=== PATIENT | female | born 1985 | race Caucasian/White ===

== ENCOUNTER 2022-12-02 15:25 | Outpatient (AMB) | payer OTHER, SELFPAY ==
[2022-12-02 15:34] VITALS: BP 106/72; PULSE 62; O2SAT 96; BMI 47.3
--- NOTE | 2022-12-02 15:34 | MHC.PC.OV ---
Vital Signs 12/02/22 15:34 Height 5 ft 2.5 in Weight 263 lb BMI 47.3 BP 106/72 Blood Pressure Location Lt brachial Position Sitting Pulse 62 Pulse Source Pulse Oximeter Temp Source Skin Pulse Oximetry (%) 96 Oxygen Delivery Method Room Air Intake Visit Reasons: Annual PE Intake Note: Patient is here today for a physical. Allergies acetaminophen [Vicodin] Allergy (Unknown, Verified 12/02/22 16:15) rash hydrocodone [Vicodin] Allergy (Unknown, Verified 12/02/22 16:15) rash diphenhydramine [From Benadryl] Adverse Reaction (Severe, Verified 12/02/22 16:15) sleepiness Medication List - Last Reconciled 12/02/22 by BRYAN Mathis albuterol sulfate 90 mcg/actuation (ProAir HFA) 2 puffs inhalation Q6H PRN 30 days aripiprazole (Abilify) 10 mg PO BEDTIME 90 days cholecalciferol (vitamin D3) 25 mcg PO DAILY 90 days clonazepam 0.5 mg PO BID PRN 30 days zolpidem 10 mg PO BEDTIME PRN 30 days Tobacco use date assessed: 12/02/22 Dental Screening Dental Screen Date: 12/02/22 Did you have a dental visit in the last 12 months?: Yes Did you have a dental problem in the last 6 months where you did not have access to dental care?: No Was dental information given to patient?: Patient has dentist HPI Annual PE HPI Details Patient is a 37-year-old female who presents today for physical exam. Patient of Dr. Sheets. Medical history significant for anxiety, depression, insomnia, asthma, patient reports smoking 10 cigarettes per day - interested in nicotine patch. Today we discussed patient's need for cervical cancer screening, patient has declined, she was educated on importance of Pap smears, she reports she never had a Pap smear in the past, she will think about this. Up-to-date with immunizations. Interested in counseling referral for her mental health. Reports eye exam 1 year ago. Reports dental exam in the past year. Denies shortness of breath or chest pain. [facility] Medical History (Updated 12/02/22 @ 16:31 by BRYAN Mathis) Anxiety Depression with anxiety Encounter to establish care History of drug abuse Insomnia Insomnia due to medical condition Surgical History History of incision and drainage Family History Father Diabetes Liver cancer HIV (human immunodeficiency virus infection) Mother No problems noted. Maternal Grandmother Diabetes Hypertension Cancer Maternal Uncle Cancer Family/Other FH: mental illness Social History Housing: Apartment Alcohol intake: never Patient Tobacco Use Status: Current everyday Tobacco user Tobacco use type: Cigarette Cigarettes Per Day: 6 e-Cigarette/Vaping Use: Never Used Second Hand Smoke Exposure: Yes service: No Current occupational status: disabled Cognitive needs: No Hearing needs: No Vision needs: Yes (glasses) Questionnaire PHQ-9 Over the last 2 weeks, how often have you been bothered by any of the following problems? 1. Little interest or pleasure in doing things: not at all 2. Feeling down, depressed, or hopeless: not at all 3. Trouble falling or staying asleep, or sleeping too much: not at all 4. Feeling tired or having little energy: not at all 5. Poor appetite or overeating: not at all 6. Feeling bad about yourself - or that you are a failure or have let yourself or your family down: not at all 7. Trouble concentrating on things, such as reading the newspaper or watching television: not at all 8. Moving or speaking so slowly that other people could have noticed. Or the opposite - being so fidgety or restless that you have been moving around a lot more than usual: not at all 9. Thoughts that you would be better off or of hurting yourself in some way: not at all Total score: 0 Depression Screening Interpretation: Negative 94809 - PHQ-9 Billing: Yes Source: Developed by Drs. Talha Meneses, Vanessa Cochran, Cesar Randall and colleagues, with an educational guillermo from [employer]. Thrive Questionnaire Date Thrive assessed: 12/02/22 I am a: Patient What is your living situation today?: I have a steady place to live Within the past 12 months, did the food you bought not last and you didn't have the money to get more?: Never true Within the past 12 months, did you worry whether your food would run out before you got money to buy more?: Never true Currently or been in a relationship where the following occur: no concerns reported AUDIT C Alcohol Use Questionnaire (AUDIT-C) 1. How often do you have a drink containing alcohol?: Never Total Score: 0 Score Reviewed/Action Taken: No KARIN-7 AMB Questionnaire KARIN-7 Date KARIN - 7 assessed: 12/02/22 Feeling nervous, anxious, or on edge: 3 = Nearly every day Not being able to stop or control worryin = Nearly every day Worrying too much about different things: 3 = Nearly every day Trouble relaxin = Not at all Being so restless that it is hard to sit still: 0 = Not at all Becoming easily annoyed or irritable: 0 = Not at all Feeling afraid as if something awful might happen: 0 = Not at all Total KARIN-7 score (0-4 normal; 5-9 mild; 10-14 moderate; 15-21 severe): 9 Source: Developed by Drs. Talha Meneses, Vanessa Cochran, Cesar Randall and colleagues, with an educational guillermo from [employer]. KARIN-7 Assessment Billing KARIN-7 Assessment Tool: KARIN-7 Assessment 47094 Review of Systems Const Denies body aches, Denies chills, Denies fever(s) and Denies headache(s) Eyes Denies change in vision ENT Denies dizziness, Denies otalgia, Denies headache(s), Denies nasal discharge, Denies sinus pain and Denies sore throat Card Denies chest pain, Denies edema, Denies lightheadedness and Denies dyspnea Resp Denies cough, Denies dyspnea and Denies wheezing GI Denies abdominal pain, Denies constipation, Denies diarrhea, Denies nausea and Denies vomiting Denies dysuria Musc Denies myalgias Skin/Breast Denies rash Neuro Denies dizziness and Denies headache(s) Aller/Immun Denies wheezing Physical exam (Primary Care) Vital Signs: Last Vital Signs Pulse 62 12/02/22 15:34 BP 106/72 12/02/22 15:34 Pulse Ox 96 12/02/22 15:34 Oxygen Delivery Method Room Air 12/02/22 15:34 BMI result Body Mass Index 47.3 Tobacco/Smoking Status: Tobacco use Status Tobacco use date assessed 12/02/22 12/02/22 15:44 Patient Tobacco Use Status Current everyday Tobacco 12/02/22 16:03 Tobacco use type Cigarette 12/02/22 15:38 e-Cigarette/Vaping Use Never Used 12/02/22 15:38 PHQ-9: PHQ-9 Score PHQ-9: Total score 0 12/02/22 16:03 Depression Screening Interpretation: Negative Thrive Assessment: Date of Thrive Assessment Date Thrive assessed 12/02/22 12/02/22 15:44 Currently or been in a relationship where the following occur: no concerns reported Const General: cooperative and no acute distress Orientation/consciousness: patient oriented x3 HENMT Head: Yes normocephalic and Yes atraumatic Ears: TM's normal bilaterally General nose exam: Normal nasal mucous membranes and turbinates present and No nasal discharge present Face and sinus: Yes sinuses nontender Mouth: oropharynx normal and moist mucous membranes Throat: Yes posterior oropharynx normal Eyes General: appearance normal, both eyes and all related structures Pupils: Equal, round and reactive pupils present EOM: EOMs intact bilaterally Neck Neck: Yes normal visual inspection, Yes full ROM and Yes no lymphadenopathy Thyroid: Thyroid normal Resp Effort & Inspection: normal respiratory effort and able to speak in complete sentences Auscultation: clear to auscultation bilaterally, no crackles, no rales, no rhonchi and no wheezes Cardio Rate: regular rate Rhythm: regular rhythm Heart sounds: S1 normal heart sound present, S2 normal heart sound present and no murmurs GI Palpation (GI): Soft to palpation, not firm, nontender, no guarding, not rigid and no hepatosplenomegaly Auscultation: normal bowel sounds General: No CVA tenderness Back/Spine/Pelvis Back: No CVA tenderness Skin General skin exam: no rashes or lesions noted Neuro General: patient oriented x3 Cranial nerves: Yes Equal, round and reactive pupils present Gait exam (Neuro): Normal gait present Extrem General: Yes full ROM and No edema Assessment and Plan Assessment & Plan (1) Morbid obesity with BMI of 45.0-49.9, adult: Code(s): E66.01 - Morbid (severe) obesity due to excess calories; Z68.42 - Body mass index [BMI] 45.0-49.9, adult Plan: Encouraged healthy food choices and exercise as tolerated Patient reports she will think about weight management referral (2) Cigarette nicotine dependence: Code(s): F17.210 - Nicotine dependence, cigarettes, uncomplicated Plan: Smokes 10 cigarettes per day - encouraged smoking cessation Nicotine patch sent (3) Physical exam: Comment: UTD dental and eye exam COVID IZs X 3 Declines pap Code(s): Z00.00 - Encounter for general adult medical examination without abnormal findings Plan: Repeat in 1 year (4) Papanicolaou smear declined: Code(s): Z53.20 - Procedure and treatment not carried out because of patient's decision for unspecified reasons Plan: See HPI for details (5) Insomnia: Code(s): G47.00 - Insomnia, unspecified Qualifiers: Insomnia type: due to other mental disorder Qualified Code(s): F51.05 - Insomnia due to other mental disorder; F99 - Mental disorder, not otherwise specified Plan: Reinforced sleep hygiene Continue zolpidem 10 mg at bedtime p.r.n.-educated about sedation and dependency (6) Depression with anxiety: Code(s): F41.8 - Other specified anxiety disorders Plan: Counseling referral Continue Klonopin b.i.d. p.r.n.-educated about dependency and memory loss Continue Abilify Plan Follow-up with PCP in 6 months or sooner as needed Orders: Orders Vitamin D 25-OH Total Today Z00.00 - Encounter for general adult medical examination without abnormal findings Vitamin B12 and Folate Today Z00.00 - Encounter for general adult medical examination without abnormal findings TSH reflex Free T4 Today Z00.00 - Encounter for general adult medical examination without abnormal findings Lipid Panel Today Z00.00 - Encounter for general adult medical examination without abnormal findings Comprehensive [place]. Panel Fast Today Z00.00 - Encounter for general adult medical examination without abnormal findings Complete Blood Count Auto Diff Today Z00.00 - Encounter for general adult medical examination without abnormal findings Referrals Counseling Referral F41.8 - Other specified anxiety disorders Medications: New nicotine 1 patch transdermal Q24H 14 ea 1RF F17.210 - Nicotine dependence, cigarettes, uncomplicated Coding Level of Care Code Est Pt Prev Care [id number](68756) Diagnoses Morbid obesity with BMI of 45.0-49.9, adult E66.01; Z68.42 Cigarette nicotine dependence F17.210 Physical exam Z00.00 Papanicolaou smear declined Z53.20 Insomnia F51.05; F99 Insomnia type: due to other mental disorder Depression with anxiety F41.8 Additional Codes KARIN-7 Assessment Billing - KARIN-7 Assessment Tool: KARIN-7 Assessment [id number] ([id number])
== END 2022-12-02 16:30 | disposition home or self-care (01) ==
PROVIDERS: PCP Internal Medicine; Visit Provider Nurse Practitioner Family
DX: Z00.00 Encounter for general adult medical examination without abnormal findings (principal); E66.01 Morbid (severe) obesity due to excess calories; Z68.42 Body mass index [BMI] 45.0-49.9, adult; F17.210 Nicotine dependence, cigarettes, uncomplicated; F41.8 Other specified anxiety disorders; Z53.20 Procedure and treatment not carried out because of patient's decision for unspecified reasons; F51.05 Insomnia due to other mental disorder; F99 Mental disorder, not otherwise specified
CPT/HCPCS: 99395

== ENCOUNTER 2024-12-28 11:04 | Outpatient (AMB) | payer OTHER, SELFPAY ==
[2024-12-28 11:08] VITALS: BP 140/72; PULSE 73; RESP 18; TEMP 36.1; O2SAT 96; BMI 43.6
--- NOTE | 2024-12-28 11:08 | A.OFFPC_ITS ---
Vital Signs 12/28/24 11:08 Height 5 ft 2.5 in Weight 242 lb 8 oz BMI 43.6 BP 140/72 H Blood Pressure Location Lt brachial Position Sitting Respiration 18 Pulse 73 Pulse Source Pulse Oximeter Temp 96.9 F Temp Source Temporal Artery Scan Pulse Oximetry (%) 96 Oxygen Delivery Method Room Air Intake Visit Reasons: annual physical Registered Nurse Hh Case Manager Required: No Accompanied by: Self / Same As Patient Allergies acetaminophen (Vicodin) Allergy (Unknown, Verified 12/28/24 11:25) rash hydrocodone (Vicodin) Allergy (Unknown, Verified 12/28/24 11:25) rash diphenhydramine (From Benadryl) Adverse Reaction (Severe, Verified 12/28/24 11:25) sleepiness Medication List - Last Reconciled 12/28/24 by Tere Mckinnon MD albuterol sulfate 90 mcg/actuation (ProAir HFA) 2 puffs inhalation Q6H PRN 30 days aripiprazole (Abilify) 10 mg PO BEDTIME 90 days cholecalciferol (vitamin D3) 25 mcg PO DAILY 90 days clonazepam 0.5 mg PO BID PRN 30 days nicotine 1 patch transdermal Q24H zolpidem 10 mg PO BEDTIME PRN 30 days Tobacco use date assessed: 12/28/24 Dental Screening Dental Screen Date: 12/28/24 Did you have a dental visit in the last 12 months?: No Did you have a dental problem in the last 6 months where you did not have access to dental care?: No Was dental information given to patient?: No HPI HPI Comments History of Present Illness Details The patient is a 39-year-old female presenting for a physical examination. She will call to schedule a mammogram whenever she is ready. Declines Pap smear. She has a history of morbid obesity and has been advised to engage in diet and exercise to achieve a BMI goal of less than 30, although she is not currently interested in weight management interventions. The patient is a smoker and has been advised to quit smoking. She has a history of intranasal opiate use, with her last use reported approximately six months ago. The patient experiences moderate recurrent major depression, with a PHQ-9 score of 15, and is currently not engaged in counseling or therapy. She was previously on sulfiram for insomnia and clonazepam for anxiety, and is aware of the potential for addiction and sedation associated with these medications. Clonazepam is also noted to have potential risks for causing dementia. [facility] Medical History (Updated 12/28/24 @ 12:29 by Tere Mckinnon MD) Morbid obesity with BMI of 45.0-49.9, adult Encounter to establish care Insomnia Depression with anxiety History of drug abuse Insomnia due to medical condition Anxiety Surgical History History of incision and drainage Family History Father Diabetes Liver cancer HIV (human immunodeficiency virus infection) Mother No problems noted. Maternal Grandmother Diabetes Hypertension Cancer Maternal Uncle Cancer Family/Other FH: mental illness Social History Housing: Apartment Alcohol intake: never Patient Tobacco Use Status: Current everyday Tobacco user Tobacco use type: Cigarette Cigarettes Per Day: 6 e-Cigarette/Vaping Use: Never Used Second Hand Smoke Exposure: Yes service: No Current occupational status: disabled Cognitive needs: No Hearing needs: No Vision needs: Yes (glasses) Questionnaire PHQ-9 Over the last 2 weeks, how often have you been bothered by any of the following problems? 1. Little interest or pleasure in doing things: more than half the days 2. Feeling down, depressed, or hopeless: several days 3. Trouble falling or staying asleep, or sleeping too much: nearly every day 4. Feeling tired or having little energy: nearly every day 5. Poor appetite or overeating: more than half the days 6. Feeling bad about yourself - or that you are a failure or have let yourself or your family down: several days 7. Trouble concentrating on things, such as reading the newspaper or watching television: more than half the days 8. Moving or speaking so slowly that other people could have noticed. Or the opposite - being so fidgety or restless that you have been moving around a lot more than usual: several days 9. Thoughts that you would be better off or of hurting yourself in some way: not at all Total score: 15 Depression Screening Interpretation: Positive (no suicidal thoughts) Depression Screening Follow-up: Existing condition, New Medication prescribed and Follow-up Visit Requested Depression Screening Done: Yes 82123 - PHQ-9 Billing: Yes Source: Developed by Drs. Talha Meneses, Vanessa Cochran, Cesar Randall and colleagues, with an educational guillermo from [employer]. Thrive Questionnaire Date Thrive assessed: 12/02/22 I am a: Patient What is your living situation today?: I do not have a steady places to live I am temporarily staying with others Within the past 12 months, did the food you bought not last and you didn't have the money to get more?: Sometimes True Within the past 12 months, did you worry whether your food would run out before you got money to buy more?: Sometimes True Do you have trouble paying for medicines?: No Do you have trouble getting transportation to medical appointments?: No Do you have trouble paying your heating and electricity bill?: I choose not to answer this question Do you have trouble taking care of your child, family member or friend?: No Do you have trouble with day-to-day activities such as bathing, preparing meals, shopping, managing finances, etc.?: No Are you currently unemployed and looking for a job?: I choose not to answer this question Are you interested in more education?: No Please select the resources that you would like help with: None Currently or been in a relationship where the following occur: No concerns reported THRIVE Score: 3 AUDIT C Alcohol Use Questionnaire (AUDIT-C) 1. How often do you have a drink containing alcohol?: Never Total Score: 0 Score Reviewed/Action Taken: No KARIN-7 AMB Questionnaire KARIN-7 Date KARIN - 7 assessed: 12/02/22 Feeling nervous, anxious, or on edge: 1 = Several days Not being able to stop or control worryin = Several days Worrying too much about different things: 1 = Several days Trouble relaxin = Several days Being so restless that it is hard to sit still: 1 = Several days Becoming easily annoyed or irritable: 2 = More than half the days Feeling afraid as if something awful might happen: 0 = Not at all Total KARIN-7 score (0-4 normal; 5-9 mild; 10-14 moderate; 15-21 severe): 7 Source: Developed by Vanessa Gonsalves Kurt Kroenke and colleagues, with an educational guillermo from [employer]. KARIN-7 Assessment Billing KARIN-7 Assessment Tool: KARIN-7 Assessment 39707 Review of Systems Const All systems reviewed & are unremarkable except as noted in HPI and below Card Denies chest pain at rest, Denies chest pain with activity, Denies edema, Denies irregular heart rhythm, Denies claudication, Denies dyspnea, Denies dyspnea on exertion, Denies orthopnea, Denies paroxysmal nocturnal dyspnea and Denies slow heart rate Resp Denies cough, Denies dyspnea and Denies dyspnea on exertion Physical exam (Primary Care) Vital Signs: Last Vital Signs Temp 96.9 F 12/28/24 11:08 Pulse 73 12/28/24 11:08 Resp 18 12/28/24 11:08 BP 140/72 H 12/28/24 11:08 Pulse Ox 96 12/28/24 11:08 Oxygen Delivery Method Room Air 12/28/24 11:08 BMI result Body Mass Index 43.6 BMI Assessment/Plan discussion: High BMI High, discussed plan: lifestyle, weight reduction, dietary and physical activity Tobacco/Smoking Status: Tobacco use Status Tobacco use date assessed 12/28/24 12/28/24 11:17 Patient Tobacco Use Status Current everyday Tobacco 12/28/24 11:17 Tobacco use type Cigarette 12/28/24 11:17 e-Cigarette/Vaping Use Never Used 12/28/24 11:17 Are you ready to quit: No Tobacco cessation counseling provided: Yes Items discussed: Nicotine replacement and QuitWorks Relapse Prevention: discussed the importance of a supportive environment, discussed extending NRT, discussed negative mood or depression after quitting, weight gain after smoking is common and discussed dietary, exercise and/or lifestyle changes Number of minutes spent counselin CPT code: Less than 3 minutes PHQ-9: PHQ-9 Score PHQ-9: Total score 15 12/28/24 11:42 Depression Screening Interpretation: Positive (no suicidal thoughts) Depression Screening Follow-up: Existing condition, New Medication prescribed and Follow-up Visit Requested Thrive Assessment: Date of Thrive Assessment Date Thrive assessed 12/02/22 12/28/24 11:17 Currently or been in a relationship where the following occur: No concerns reported HENMT Head: Yes normal to inspection, Yes normocephalic and Yes atraumatic Ears: external ears normal Eyes General: appearance normal, both eyes and all related structures Eyelids: Yes eyelids normal Conjunctivae: conjunctivae normal Neck Neck: Yes normal visual inspection and Yes supple Resp Effort & Inspection: normal respiratory effort Auscultation: clear to auscultation bilaterally Cardio Jugular venous distension: no JVD Rate: regular rate Rhythm: regular rhythm Heart sounds: S1 normal heart sound present and S2 normal heart sound present GI Inspection: Yes normal to inspection Palpation (GI): Soft to palpation and nontender Auscultation: normal bowel sounds Skin General skin exam: no rashes or lesions noted Neuro General: no focal motor deficits Extrem General: Yes full ROM Psych Appearance: grossly normal Results AMB Urinalysis, Automated UA Leukoctes 0 Abdon/uL Last Edit by Naheed Meraz MA on 12/28/24 11: 44 UA Nitrite Negative Last Edit by Naheed Meraz MA on 12/28/24 11:4 4 UA Urobilinogen 0 mg/dL Last Edit by Naheed Meraz MA on 12/28/24 11:44 UA Protein 1 mg/dL Last Edit by Naheed Meraz MA on 12/28/24 11:44 UA pH 6.0 Last Edit by Naheed Meraz MA on 12/28/24 11:44 UA Blood 3 Jean/uL Last Edit by Naheed Meraz MA on 12/28/24 11:44 UA Specific [place] 0 Last Edit by Naheed Meraz MA on 12/28/24 11 :44 UA Ketone Negative Last Edit by Naheed Meraz MA on 12/28/24 11:44 UA Bilirubin 0 mg/dL Last Edit by Naheed Meraz MA on 12/28/24 11:4 4 UA Glucose 0 mg/dL Last Edit by Naheed Meraz MA on 12/28/24 11:44 Results Reviewed Results Reviewed: Laboratory Last Values Urine pH (Auto) 6.0 12/28/24 11:42 Specific [place] (Auto) 0 12/28/24 11:42 Urine Protein (Auto) 1 mg/dL 12/28/24 11:42 Glucose (UA)(Auto) 0 mg/dL 12/28/24 11:42 Urine Ketones (Auto) Negative 12/28/24 11:42 Urine Blood (Auto) 3 Jean/uL 12/28/24 11:42 Urine Nitrite (Auto) Negative 12/28/24 11:42 Urine Bilirubin (Auto) 0 mg/dL 12/28/24 11:42 Urine Urobilinogen (Auto) 0 mg/dL 12/28/24 11:42 Leukocyte Esterase (Auto) 0 Abdon/uL 12/28/24 11:42 Coding Level of Care Code Est Pt Level 3 (16813) Est Pt Prev Care 40-64y(93555) Diagnoses Physical exam Z00.00 Insomnia due to other mental disorder F51.05; F99 Insomnia type: due to other mental disorder History of drug abuse F19.11 Moderate recurrent major depression F33.1 Anxiety F41.9 Morbid obesity with BMI of 40.0-44.9, adult E66.01; Z68.41 Additional Codes KARIN-7 Assessment Billing - KARIN-7 Assessment Tool: KARIN-7 Assessment 91784 ([id number]) PHQ-9 - 17583 - PHQ-9 Billing: Yes ([id number]) Time Spent (min) 35 Assessment & Plan Assessment & Plan (1) Physical exam: Comment: UTD dental and eye exam COVID IZs X 3 Declines pap Code(s): Z00.00 - Encounter for general adult medical examination without abnormal findings Category: Medical (2) Insomnia: Code(s): G47.00 - Insomnia, unspecified Category: Medical Qualifiers: Insomnia type: due to other mental disorder Qualified Code(s): F51.05 - Insomnia due to other mental disorder; F99 - Mental disorder, not otherwise specified (3) History of drug abuse: Code(s): F19.11 - Other psychoactive substance abuse, in remission Category: Medical (4) Moderate recurrent major depression: Code(s): F33.1 - Major depressive disorder, recurrent, moderate Category: Medical (5) Anxiety: Code(s): F41.9 - Anxiety disorder, unspecified Category: Medical (6) Morbid obesity with BMI of 40.0-44.9, adult: Code(s): E66.01 - Morbid (severe) obesity due to excess calories; Z68.41 - Body mass index [BMI] 40.0-44.9, adult Category: Medical Plan Plan 1. Morbid Obesity The patient has been advised to engage in diet and exercise to achieve a BMI goal of less than 30, although she is not currently interested in weight management interventions. 2. Tobacco Use Disorder The patient is a smoker and has been advised to quit smoking. 3. History Of Intranasal Opiate Use The patient has a history of intranasal opiate use, with her last use reported approximately six months ago. 4. Major Depressive Disorder, Recurrent, Moderate The patient experiences moderate recurrent major depression, with a PHQ-9 score of 15, and is currently not engaged in counseling or therapy. A referral to psychiatric outpatient services for evaluation has been planned. 5. Insomnia The patient was previously on sulfiram for insomnia and is aware of the potential for addiction and sedation associated with this medication. 6. Anxiety Disorder The patient was previously on clonazepam for anxiety and is aware of the potential for addiction and sedation associated with this medication. Clonazepam is also noted to have potential risks for causing dementia. Orders: Orders Opiates GCMS Expanded, Ur Today F19.11 - Other psychoactive substance abuse, in remission Comprehensive [place]. Panel Fast Today E66.01 - Morbid (severe) obesity due to excess calories, Z68.42 - Body mass index [BMI] 45.0-49.9, adult Thyroid Stimulating Hormone Today E66.01 - Morbid (severe) obesity due to excess calories, Z68.42 - Body mass index [BMI] 45.0-49.9, adult Complete Blood Count Auto Diff Today E66.01 - Morbid (severe) obesity due to excess calories, Z68.42 - Body mass index [BMI] 45.0-49.9, adult Benzodiazepine,GC/MS Urine Today F19.11 - Other psychoactive substance abuse, in remission Drug Screen Urine Today F19.11 - Other psychoactive substance abuse, in remission AMB Urinalysis Automated Today Z13.9 - Encounter for screening, unspecified Lipid Panel Today E66.01 - Morbid (severe) obesity due to excess calories, E78.5 - Hyperlipidemia, unspecified, Z68.42 - Body mass index [BMI] 45.0-49.9, adult Referrals Psychiatry Outpatient Consultation Service F33.1 - Major depressive disorder, recurrent, moderate, F41.9 - Anxiety disorder, unspecified Medications: New citalopram 10 mg PO DAILY 90 tabs 1RF 90 days F33.1 - Major depressive disorder, recurrent, moderate Changed From clonazepam 0.5 mg PO BID 30 days PRN 60 tabs 0RF anxiety To clonazepam 0.5 mg PO BID PRN 14 tabs 0RF anxiety 7 days From zolpidem 10 mg PO BEDTIME 30 days PRN 30 tabs 0RF insomnia To zolpidem 10 mg PO BEDTIME PRN 7 tabs 0RF insomnia 7 days
== END 2024-12-28 11:47 | disposition home or self-care (01) ==
LOC: HO.HMCH 11:05
PROVIDERS: PCP Internal Medicine; Visit Provider Internal Medicine
DX: Z00.00 Encounter for general adult medical examination without abnormal findings (principal); F19.11 Other psychoactive substance abuse, in remission; F33.1 Major depressive disorder, recurrent, moderate; E66.01 Morbid (severe) obesity due to excess calories; Z68.41 Body mass index [BMI] 40.0-44.9, adult; F51.05 Insomnia due to other mental disorder; F99 Mental disorder, not otherwise specified; F41.9 Anxiety disorder, unspecified; Z13.9 Encounter for screening, unspecified

== ENCOUNTER → 2024-12-28 11:04 | Outpatient (BNVA) | payer OTHER, SELFPAY ==
[2024-12-28 13:07] LABS: Cannabinoid Screen Urine Not Detected (Not Detect)
[2025-01-02 09:56] LABS: Alprazolam, GCMS Urine NEGATIVE; Aminoclonazepam, GCMS Urine NEGATIVE; Hydrocodone, Ur NEGATIVE; Hydromorphone, Ur NEGATIVE; Morphine, Ur NEGATIVE; Oxycodone, Ur NEGATIVE; Oxymorphone, Ur NEGATIVE
[2025-01-02 09:57] LABS: Alphahydroxymidazolam,GCMS Ur NEGATIVE; Alphahydroxytriazolam, GCMS Ur NEGATIVE; Flurazepam Metabolite,GCMS Ur NEGATIVE; Lorazepam GCMS Urine NEGATIVE; Nordiazepam, GCMS Urine NEGATIVE; Norhydrocodone, Ur NEGATIVE; Noroxycodone, Ur NEGATIVE; Oxazepam, GCMS Urine NEGATIVE; Temazepam, GCMS Urine NEGATIVE
[2025-01-02 09:58] LABS: Codeine, Ur NEGATIVE
== END ==
PROVIDERS: PCP Internal Medicine; Visit Provider Internal Medicine
DX: Z00.00 Encounter for general adult medical examination without abnormal findings (principal); E66.01 Morbid (severe) obesity due to excess calories; F51.05 Insomnia due to other mental disorder; F99 Mental disorder, not otherwise specified; F19.11 Other psychoactive substance abuse, in remission; F33.1 Major depressive disorder, recurrent, moderate; F41.9 Anxiety disorder, unspecified; Z68.41 Body mass index [BMI] 40.0-44.9, adult; E78.5 Hyperlipidemia, unspecified
CPT/HCPCS: 80307; 80346; 80365; 81003; 96127; 99212; 99396; G0480